=== PATIENT | male | born 2000 | race Caucasian/White ===

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

== ENCOUNTER → 2018-12-15 | Outpatient (REF) | payer OTHER ==
[~2018-12-15] MED LIST: IBUP-1114 PO
[2018-12-15 17:15] LABS: ALBUMIN 4.2 GM/DL (3.2-5.2); ALT/SGPT 45 U/L (12-78); BILIRUBIN,TOTAL 0.5 MG/DL (0.2-1.0); BLOOD UREA NITROGEN 20 MG/DL (7-18); CALCIUM LEVEL 9.5 MG/DL (8.5-10.1); CARBON DIOXIDE LEVEL 27 MEQ/L (21-32); CHLORIDE LEVEL 105 MEQ/L (98-107); CHOLESTEROL LEVEL 156 MG/DL (<200); CHOLESTEROL RISK RATIO 3.545 (<5); CREATININE FOR GFR 0.93 MG/DL (0.70-1.30); GLUCOSE, FASTING 72 MG/DL (70-100); HDL CHOLESTEROL 44 MG/DL (>40); LDL CHOLESTEROL 90 MG/DL (<100); NON-HDL-C 112 MG/DL; POTASSIUM SERUM 4.3 MEQ/L (3.5-5.1); SODIUM LEVEL 139 MEQ/L (136-145); TOTAL PROTEIN 7.8 GM/DL (6.4-8.2); TRIGLYCERIDES LEVEL 111 MG/DL (<150)
[2018-12-15 17:35] LABS: HEMOGLOBIN 15.4 g/dl (13.5-17.5); MEAN CORPUSCULAR HEMOGLOBIN 30.4 pg (27.0-33.0); MEAN CORPUSCULAR HGB CONC 34.2 g/dl (32.0-36.5); MEAN CORPUSCULAR VOLUME 88.9 fl (80.0-96.0); PLATELET COUNT, AUTOMATED 270 10^3/uL (150-450); RED BLOOD COUNT 5.06 10^6/uL (4.30-6.10); WHITE BLOOD COUNT 5.8 10^3/uL (4.0-10.0)
[2018-12-15 18:15] LABS: ERYTHROCYTE SEDIMENTATION RATE 5 mm/hr (0-15)
== END ==
LOC: M SFHCCLAY 10:43
PROVIDERS: ATTEND Nurse Practitioner Family
DX: R19.7 Diarrhea, unspecified (principal); Z13.6 Encounter for screening for cardiovascular disorders

== ENCOUNTER 2022-06-02 11:03 | Emergency (ER) | payer OTHER ==
[~2022-06-02] VITALS: Ht 172.7 cm; Wt 86.4 kg
[2022-06-02] MEDS ORDERED: NAPROXEN 250 MG TAB PO ONE (13:35)
[2022-06-02] MEDS ORDERED: NAPR-837 PO (13:35)
[2022-06-02 13:49] VITALS: BP 116/67
[2022-06-02 13:49] LABS: APPEARANCE, URINE MANUAL CLEAR (CLEAR); BILIRUBIN, URINE MANUAL NEGATIVE (NEGATIVE); BLOOD URINE MANUAL NEGATIVE (NEGATIVE); COLOR, URINE MANUAL YELLOW (YELLOW); GLUCOSE, URINE (UA) MANUAL NEGATIVE (NEGATIVE); KETONE, URINE MANUAL NEGATIVE (NEGATIVE); LEUKOCYTE ESTERASE, URINE MAN NEGATIVE (NEGATIVE); NITRITE, URINE MANUAL NEGATIVE (NEGATIVE); PROTEIN, URINE MANUAL NEGATIVE (NEGATIVE); SPECIFIC GRAVITY,URINE MANUAL 1.015 (1.002-1.035); UROBILINOGEN, URINE MANUAL NORMAL (NORMAL)
[2022-06-02 15:26] LABS: GC DNA AMPLIFICATION NEGATIVE (NEGATIVE)
== END 2022-06-02 14:10 | disposition home or self-care (01) ==
LOC: M ED 11:03
DX: N50.812 Left testicular pain (principal)

== ENCOUNTER → 2025-03-06 | Outpatient (CLI) | payer OTHER ==
[~2025-03-06] MED LIST changes: +NAPR-837 PO
== END ==
LOC: M SOG 08:05
PROVIDERS: ATTEND Orthopaedic Surgery
DX: M79.632 Pain in left forearm (principal)

== ENCOUNTER → 2025-03-22 | Outpatient (CLI) | payer OTHER ==
[~2025-03-22] MED LIST changes: +HYDR-3713 PO
[2025-03-22 12:47] LABS: BASO # 0.0 10^3/uL (0.0-0.2); BASO % 0.5 % (0.0-1.0); EOS # 0.1 10^3/uL (0.0-0.5); EOS % 1.2 % (0.0-3.0); LYMPH # 1.4 10^3/uL (1.5-5.0); LYMPH % 23.2 % (24.0-44.0); MONO # 0.5 10^3/uL (0.0-0.8); MONO % 7.8 % (2.0-8.0); NEUTROPHILS # 3.9 10^3/uL (1.5-8.5); NEUTROPHILS % 67.0 % (36.0-66.0); PLATELET COUNT, AUTOMATED 284 10^3/uL (150-450)
[2025-03-22 12:56] LABS: INR 0.94
[2025-03-22 12:57] LABS: ALT/SGPT 35 U/L (7.0-40); AST/SGOT 22 U/L (<34); CALCIUM LEVEL 9.2 MG/DL (8.5-10.1); CARBON DIOXIDE LEVEL 28 MMOL/L (20-31); CHLORIDE LEVEL 106 MMOL/L (98-107); CREATININE FOR GFR 0.91 MG/DL (0.70-1.30); GLOMERULAR FILTRATION RATE > 90.0 (>60); POTASSIUM SERUM 4.6 MMOL/L (3.5-5.1); SODIUM LEVEL 138 MMOL/L (136-145)
== END ==
LOC: M PLALAB 09:57
PROVIDERS: ATTEND Orthopaedic Surgery
DX: S52.232A Displaced oblique fracture of shaft of left ulna, initial encounter for closed fracture (principal); X58.XXXA Exposure to other specified factors, initial encounter; Y92.9 Unspecified place or not applicable; Y93.9 Activity, unspecified; Y99.9 Unspecified external cause status

== ENCOUNTER 2025-03-23 11:00 | Day surgery (SDC) | payer OTHER ==
[~2025-03-23] VITALS: Ht 172.7 cm; Wt 85.7 kg
[2025-03-23] MEDS ORDERED: LR 1,000 ML IV SCH ×2 (11:40→15:30)
[2025-03-23] MEDS ORDERED: ONDANSETRON 4MG 2ML VIAL As Ordered ONE (12:21)
[2025-03-23] MEDS ORDERED: LIDOCAINE 2% 100 MG/5 ML SDV (FOR ANES.) As Ordered ONE (12:21)
[2025-03-23] MEDS ORDERED: MIDAZOLAM INJ 2 MG/2 ML VIAL As Ordered ONE (12:21)
[2025-03-23] MEDS ORDERED: KETOROLAC 30 MG/ML 1 ML VIAL As Ordered ONE (12:21)
[2025-03-23] MEDS ORDERED: dexAMETHasone 4 MG/ML 1 ML VIAL As Ordered ONE (12:21)
[2025-03-23] MEDS ORDERED: ACETAMINOPHEN 1000MG/100ML IV BAG As Ordered ONE (12:22)
[2025-03-23] MEDS ORDERED: dexAMETHasone 10 MG/1 ML VIAL PRES.FREE PN ONE (12:45)
[2025-03-23] MEDS ORDERED: ROPIvacaine 0.5% 30ML VIAL PN ONE (12:45)
[2025-03-23] MEDS ORDERED: LIDOCAINE 1% SDV 5 ML VIAL PN ONE (12:45)
[2025-03-23] MEDS: SCOPOLAMINE 1MG TRANSDERMAL PATCH TOP ONE (12:55)
[2025-03-23] MEDS: MIDAZOLAM INJ 2 MG/2 ML VIAL IV PRN (12:57)
[2025-03-23] MEDS: TRANEXAMIC ACID 100 MG/ML 10ML VIAL As Ordered ONE (13:32)
[2025-03-23] MEDS: VANCOMYCIN 500MG/10ML VIAL As Ordered ONE (13:32)
[2025-03-23] MEDS ORDERED: ONDANSETRON 4MG 2ML VIAL IV PRN (15:30)
[2025-03-23] MEDS ORDERED: HYDROMORPHONE HCL 0.5 MG/0.5 ML SYRINGE IV PRN (15:30)
[2025-03-23 16:35] VITALS: BP 116/64; TEMP 97.6; O2SAT 97
== END 2025-03-23 16:57 | disposition home or self-care (01) ==
LOC: M SDC 11:00
PROVIDERS: ATTEND Orthopaedic Surgery
DX: S52.252A Displaced comminuted fracture of shaft of ulna, left arm, initial encounter for closed fracture (principal); W01.10XA Fall on same level from slipping, tripping and stumbling with subsequent striking against unspecified object, initial encounter; Y92.9 Unspecified place or not applicable; Y93.9 Activity, unspecified; G47.30 Sleep apnea, unspecified; R06.83 Snoring; F17.200 Nicotine dependence, unspecified, uncomplicated; Z79.891 Long term (current) use of opiate analgesic
CPT/HCPCS: 25545; 76000; C1713; J0131; J0688; J1100; J1885; J2250; J2405; J2765; J3010

== ENCOUNTER → 2025-04-04 | Outpatient (CLI) | payer OTHER | LOC: M SOG 07:20 | PROVIDERS: ATTEND Orthopaedic Surgery | DX: Z98.890 Other specified postprocedural states (principal); Z47.89 Encounter for other orthopedic aftercare ==

== ENCOUNTER → 2025-05-05 | Outpatient (CLI) | payer OTHER | LOC: M SOG 07:33 | PROVIDERS: ATTEND Orthopaedic Surgery | DX: S52.252D Displaced comminuted fracture of shaft of ulna, left arm, subsequent encounter for closed fracture with routine healing (principal) ==